=== PATIENT | female | born 1990 | race Caucasian/White ===

== ENCOUNTER 2017-09-12 16:25 | Emergency (ER) | payer OTHER ==
[~2017-09-12] VITALS: Ht 160 cm; Wt 72.6 kg
[~2017-09-12 16:25] MED LIST: PRENATAL 19 TA1 EAC1 PO
[2017-09-12] MEDS ORDERED: BACTRIM DS TAB1 EACH PO (21:03)
== END 2017-09-12 22:20 | disposition home or self-care (01) ==
LOC: ER 16:25
DX: N39.0 Urinary tract infection, site not specified (principal); R50.9 Fever, unspecified